=== PATIENT | female | born 1950 | race Caucasian/White ===

== ENCOUNTER 2024-08-24 09:41 | Day surgery (SDC) | payer OTHER ==
[~2024-08-24] VITALS: Ht 154.9 cm; Wt 82.9 kg
[2024-08-24] VITALS (20 sets, daily range): BP systolic 134–1701; BP diastolic 63–93
[~2024-08-24 09:41] MED LIST: Acetaminophen 500 MG Tab PO SCH; BUPROPION XL150 M1 PO; CeFAZolin Sodium 2,000 MG in NS 100 ML IV SCH; Chlorhexidine Mouth Care 15 ML UDC MT SCH; ERGO400 PO; IBUP400 PO; K-Dur20 MEQ PO; Lactated Ringer's 1,000 ML IV SCH; NORVASC2.5 MG PO; OxyCODONE HCL 10 MG TABCR PO SCH; POTCIT10 PO; SERT100 PO; TRAZ150T57 PO; Tranexamic Acid 1,000 MG in NS 100 ML IV SCH; ZYRTEC10 M1 PO
[2024-08-24] MEDS ORDERED: Ropivacaine 0.5% HCl/Pf 123.125 MG,EPINEPHrine HCL 0.25 MG,Ketorolac Tromethamine 15 MG... INFIL SCH (10:05)
[2024-08-24] MEDS ORDERED: OZEMPIC0.25 MG/02 SQ (11:38)
[2024-08-24] MEDS ORDERED: FentaNYL Citrate 50 MCG/ML 2 ML Injection ONE (12:41)
[2024-08-24] MEDS ORDERED: Etomidate 2MG / ML 10ML Vial ONE (12:41)
[2024-08-24] MEDS ORDERED: OxyCODONE HCL 5 MG TAB PO PRN ×2 (13:00→13:05)
[2024-08-24] MEDS ORDERED: Bisacodyl 10 MG Supp PR PRN (13:00)
[2024-08-24] MEDS ORDERED: Promethazine HCl 25 MG Tab PO PRN (13:00)
[2024-08-24] MEDS ORDERED: Metoclopramide HCl 5MG / ML 2ML Vial IV PRN (13:05)
[2024-08-24] MEDS ORDERED: Ondansetron HCl 2 MG / ML 2ML Vial IV PRN (13:05)
[2024-08-24] MEDS ORDERED: Magnesium Hydroxide Conc 10 ML UDC PO PRN (13:05)
[2024-08-24] MEDS ORDERED: Lactated Ringer's 1,000 ML IV SCH (13:05)
[2024-08-24] MEDS ORDERED: Lidocaine HCl 2% 20 ML MDV ONE (13:06)
[2024-08-24] MEDS ORDERED: HYDROmorphone HCl/Pf 1MG SYR ONE ×3 (13:08→15:09)
[2024-08-24] MEDS ORDERED: DiphenhydrAMINE HCL 25 MG Cap PO PRN (13:10)
[2024-08-24] MEDS ORDERED: HYDROmorphone HCl/Pf 1MG SYR IV PRN ×2 (13:10→13:30)
[2024-08-24] MEDS ORDERED: FLU VACC TS2024-25(6MOS UP)/PF 45 MCG/0.5 ML SYRINGE IM SCH (13:10)
[2024-08-24] MEDS ORDERED: Ondansetron HCl 2 MG / ML 2ML Vial ONE (13:14)
[2024-08-24] MEDS ORDERED: Dexamethasone Sod Phos 10 MG/ML 1ML VIAL ONE (13:14)
[2024-08-24] MEDS ORDERED: Labetalol HCL 5 MG/ML 4ML Injection (Single Dose) IV PRN (13:25)
[2024-08-24] MEDS ORDERED: Atropine Sulfate 0.1 MG/ML 10ML SYR IV PRN (13:25)
[2024-08-24] MEDS ORDERED: Albuterol 2.5 MG/3 ML VIAL INH PRN (13:25)
[2024-08-24] MEDS ORDERED: Scopolamine Hydrobromide Patch TOP SCH (13:25)
[2024-08-24] MEDS ORDERED: FentaNYL Citrate 50 MCG/ML 2 ML Injection IV PRN ×2 (13:25→13:30)
[2024-08-24] MEDS ORDERED: HydrALAZINE HCl 20 MG / ML 1ML Vial IV PRN (13:30)
[2024-08-24] MEDS ORDERED: Sugammadex Sodium 200 MG/2ML SDV (100 MG/ML) ONE (13:45)
[2024-08-24] MEDS ORDERED: Phenylephrine HCl 100 MCG/ML-NS 10MLSYR (1MG/10ML) ONE (13:53)
[2024-08-24] MEDS ORDERED: Acetaminophen 500 MG Tab PO SCH (16:00)
--- NOTE | 2024-08-24 17:11 | NUR ---
POST OP NOTE PT IN ROOM 223 FROM PACU. PT IS ALERT AND RESPONSIVE, SISTER AT BEDSIDE. PAS, NEVILLE JIMENEZ, POLAR PACK IN PLACE. VSS. PT HAS AMBULATED 1 ASST W/ FWW AND GB TO BATHROOM, VOIDED, TOLERATING PO FLUIDS AND SNACKS. CAP REFILL IN L TOES 2 SECS, PT DENIES N/T TO BLE AND CAN WIGGLE TOES. PAIN IS TOLERABLE. PT CURRENTLY RESTING IN RECLINER W/ LEGS ELEVATED, CALL LIGHT IN REACH.
[2024-08-24] MEDS ORDERED: Ketorolac Tromethamine 15mg Vial IV SCH (18:00)
[2024-08-24] MEDS ORDERED: CeFAZolin Sodium 2,000 MG in NS 100 ML IV SCH (21:00)
[2024-08-24] MEDS ORDERED: Docusate Sodium 100 MG Cap PO SCH (21:00)
[2024-08-25 00:31] VITALS: BP 150/58
--- NOTE | 2024-08-25 04:49 | NUR ---
SHIFT SUMMARY POD1 L TKA. SENSATION AND CIRCULATION REMAINS INTACT. DRESSING REMAINS C/D/I, CRYO REMAINS IN PLACE. VSS. PT HAS SLEPT ON AND OFF T/O THE NIGHT. PT HAS BEEN OOB TO VOID AND PRACTICE AMBULATION. PT MEDICATED FOR PAIN ONCE W/OXY, OTHERWISE SCHEDULED MEDICATIONS HAVE BEEN USED. PT HAD ONE EMESIS AFTER HER FIRST WALK, MEDICATED W/NAUSEA. POST EMESIS, THE PT HAS BEEN TOLELRATING PO INTAKE W/O N/V. OVERALL, NO ACUTE EVENTS NOTED. PLAN FOR PHYSICAL THERAPY AND D/C HOME.
[2024-08-25 04:55] VITALS: BP 145/60
[2024-08-25 05:59] LABS: BASOPHILS ABSOLUTE AUTO 0.03 K/mm3 (0.00-0.23); BASOPHILS PERCENT AUTO 0 % (0-2); EOSINOPHILS ABSOLUTE AUTO 0.01 K/mm3 (0.00-0.68); EOSINOPHILS PERCENT AUTO 0 % (0-6); Hemoglobin 11.9 g/dL (11.5-16.0); IMMATURE GRAN ABSOLUTE AUTO 0.04 K/mm3 (0.00-0.10); IMMATURE GRAN PERCENT AUTO 0 % (0-1); LYMPHOCYTES ABSOLUTE AUTO 1.74 K/mm3 (0.84-5.20); LYMPHOCYTES PERCENT AUTO 16 % (21-46); MONOCYTES ABSOLUTE AUTO 0.79 K/mm3 (0.16-1.47); MONOCYTES PERCENT AUTO 7 % (4-13); Mean Corpuscular HGB 30.4 pg (26.0-34.0); Mean Corpuscular Volume 89 fL (80-100); NEUTROPHILS PERCENT AUTO 75 % (41-73); Platelet Count 227 K/mm3 (150-400); RDW Coefficient Variation 13.6 % (11.7-14.2); RDW Standard Deviation 44.1 fL (35.1-46.3); Red Blood Cell Count 3.92 M/mm3 (3.80-5.20); White Blood Cell Count 10.61 K/mm3 (4.00-11.30)
[2024-08-25 06:18] LABS: Bun/Creatinine Ratio 20.3 (12.0-20.0); Calcium, Blood 9.6 mg/dL (8.5-10.1); Creatinine, Blood 0.69 mg/dL (0.40-1.00); Magnesium, Blood 1.9 mg/dL (1.6-2.4)
[2024-08-25 07:12] VITALS: BP 141/56
[2024-08-25] MEDS ORDERED: ACET500 PO (08:05)
[2024-08-25] MEDS ORDERED: ASPI81CH PO (08:05)
[2024-08-25] MEDS ORDERED: OXAYDO5 M1 PO (08:06)
[2024-08-25] MEDS ORDERED: Aspirin 81 MG Chew PO SCH (09:00)
[2024-08-25 13:47] VITALS: BP 145/57
--- NOTE | 2024-08-25 20:28 | NUR ---
DISCHARGE NOTE PT IS A/O X4, AMBULATING 1 ASST W/ FWW AND GB, VOIDING, TOLERATING REG DIET. PAIN IS TOLERABLE W/ SCHEDULED AND PRN MEDS. VSS. DRESSING TO L KNEE C/D/I. CAP REFILL TO L TOES 2 SECS, PT DENIES N/T TO BLE. DISCHARGE INSTRUCTIONS REVIEWED W/ PT AND SISTER, COPY GIVEN TO PT. PT TO [facility] SENT BY DR. TIM TO [facility], PT ALSO TO [facility] AT [facility] AFTER DISCHARGE. PT HAD TO WAIT FOR RIDE HOME PT'S ORIGINAL RIDE WAS DELAYED, CARE MANAGEMENT ABLE TO ARRANGE TRANSPORT W/ [facility]. DC'D HOME VIA MEDICAL TRANSPORT IN STABLE CONDITION W/ BELONGINGS AND PERSONAL MEDS AND DRESSINGS IN HAND.
== END 2024-08-25 13:54 | disposition home health service (06) ==
LOC: ORSCMMR 09:41 → ORD 11:00 → SURS 15:43 → ORD 16:00 → ORSCMMR 08-25 13:54
PROVIDERS: Orthopaedic Surgery
PROC: 0SRD0JA Replacement of Left Knee Joint with Synthetic Substitute, Uncemented, Open Approach (ICD-10-PCS; principal; 2024-08-24 11:00)
PROC: 8E0Y0CZ Robotic Assisted Procedure of Lower Extremity, Open Approach (ICD-10-PCS; principal; 2024-08-24 11:00)
DX: M17.12 Unilateral primary osteoarthritis, left knee (principal); I10 Essential (primary) hypertension; Z79.899 Other long term (current) drug therapy; Z79.85 Long-term (current) use of injectable non-insulin antidiabetic drugs; F32.A Depression, unspecified; Z85.3 Personal history of malignant neoplasm of breast; Z85.89 Personal history of malignant neoplasm of other organs and systems
CPT/HCPCS: 36415; 73560-LT; 80048; 83735; 85025; 94760; 97110; 97116; 97162; 97530; A9270; C1713; C1776; J0171; J0690; J0735; J1100; J1171; J1885; J2371; J2405; J2795; J3010; J7120